=== PATIENT | female | born 1970 | race Caucasian/White ===

== ENCOUNTER 2023-06-28 15:15 | Emergency (ER) | payer BC, SELFPAY ==
[2023-06-28 15:23] VITALS: BP 167/99; PULSE 75; RESP 16; TEMP 36.1; O2SAT 97; BMI 28.0
--- NOTE | 2023-06-28 15:45 | ED.GENADULT ---
HPI - General Adult General Time Seen by Provider: 15:45 Date Seen: 06/28/23 Chief complaint: Hypertension Stated complaint: High blood pressure Time Seen by Provider: 06/28/23 15:38 Source: patient, RN notes reviewed and old records reviewed Mode of arrival: ambulatory Limitations: no limitations History of Present Illness HPI narrative: This 53-year-old female is ambulatory into the ED with concern of hypertension and headache. She has history of significant hypertension period was in [facility] for 3 years prior[place] She has had a severe headache all day, is feeling it more in the left side of the head behind the eye. She has no visual changes. She has noted no neurologic changes. She was in clinic today for what sounds to be weight loss. She had a white blood count that was normal at 6700, normal hemoglobin at 12.8, normal platelet count of 234,000. She had a chest abdomen pelvis done, showed no significant acute findings. There was a trace pericardial effusion, she had a stable adrenal lesion. She was aware of the adrenal lesion and if that was reported to be stable from prior comparisons. She has cilnidipine 10mg from [facility], did take this earlier. She also is on losartan, was on Cardizem as well. She is being switched to amlodipine and losartan was renewed, will be picking those up tomorrow. 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 No chest or respiratory symptoms at this time. She states she has a sister who has had an aneurysm, cerebral, her mom also had cerebral aneurysm. Patient herself has had an MRI and has not been found to have a cerebral vascular abnormality per her report. She states she has a brother who was hospitalize in a coma with hypertension. She notes that her right ear has been hurting, the provider she saw today stated there may have been a recent infection but nothing to treat now. She has had a history of migraine headaches before. She does have some photophobia with her current headache. She is concerned that her headache is caused by her blood pressure. On arrival her blood pressure is 167/99, she feels that this is erroneously. This was on a automatic cough. I did recheck when I was in the room with her and it was 181/100. Related Data Home Medications Medication Instructions Recorded Confirmed amlodipine 10 mg tablet PO 06/28/23 losartan 100 mg tablet 100 mg PO DAILY 06/28/23 06/28/23 Review of Systems Status of ROS: Reports: 6 or more systems reviewed and unremarkable except as noted in History and below [facility] Social History Smoking Status: Smoker, status unknown Do you use any of these nicotine containing products: Vaping Products How often do you have a drink containing alcohol: monthly or less How often do you have six or more drinks on one occasion: Never AUDIT-C Alcohol total score: 1 Non-prescribed substance use: denies use Exam Const: Vital Signs, click to edit/add: Vital Signs - 24 hr 06/28/23 15:23 06/28/23 17:21 Temperature 97.0 F L Pulse Rate [Pulse Oximeter] 75 Respiratory Rate 16 18 Blood Pressure [Ri ght Upper Arm] 167/99 H 141/82 H Pulse Oximetry 97 Oxygen Delivery Me thod Room Air This 53-year-old female is ambulatory into the ED of her own accord. She is alert, interactive, looks like she is uncomfortable but no apparent distress. Pupils are equal round reactive, extraocular muscles intact sclera clear, conjugate gaze. TMs canals are normal, no evidence of any changes or infection. She has symmetrical facial function, speaking in complete sentences. Neck is supple, no cervical adenopathy, no thyromegaly masses or nodules come no jugular venous distension. Lungs are clear, good air entry, no wheezing or crackles. CV regular rate and rhythm, no murmur, normal S1-S2, no S3-S4. Her neurologic exam is nonfocal. Course Course ED Course: I have reviewed with patient that we will monitor her blood pressure here. I did discuss with hair that I do suspect that her headache is possibly unrelated to her blood pressure. We can do a head CT here at this time to look for intracranial pathology. Will have an EKG done, will get a basic metabolic panel. Her CBC was done earlier. She also had a chest abdomen pelvis done in clinic as noted above. Will favor monitoring her blood pressures here for while before giving her further medicines. She has taken medicines prior to coming in, they may start taking effect and we could theoretically drop her blood pressure too low. We are considering hypertensive encephalopathy, migraine headache, other headache disorders, not likely to be a vascular event if MRI prior has shown her to not have any aneurysms. Reevaluation(s) Time of Reevaluation #1: 17:28 Reevaluation #1: Reviewed with Mana that her head CT is not showing any acute changes. We did review with hypertensive encephalopathy that it is very likely to be seen on head CT. MRI may be a better imaging modality but reviewed with her that I cannot do 1 here at this time. There is no available staff. Her blood pressure right now is 149/94. Her electrolytes are normal. I had ordered some IV Toradol and fluids for her but she would just like to try this orally. I have subsequently canceled that and will give her 10 mg oral Toradol. She is requesting to go home. Vital Signs Vital signs: Initial Vital Signs Temperature 97.0 F L 06/28/23 15:23 Temperature Source Temporal Artery Scan 06/28/23 15:23 Pulse Rate 75 06/28/23 15:23 Pulse Rhythm Regular 06/28/23 15:23 Respiratory Rate 16 06/28/23 15:23 Blood Pressure 167/99 H 06/28/23 15:23 Blood Pressure Mean 121 H 06/28/23 15:23 Blood Pressure Position Sitting 06/28/23 15:23 Pulse Oximetry 97 06/28/23 15:23 Oxygen Delivery Method Room Air 06/28/23 15:23 Vital Signs Temperature 97.0 F L 06/28/23 15:23 Pulse Rate 75 06/28/23 15:23 Respiratory Rate 16 06/28/23 15:23 Blood Pressure 167/99 H 06/28/23 15:23 Pulse Oximetry 97 06/28/23 15:23 Oxygen Delivery Method Room Air 06/28/23 15:23 Temperature 97.0 F L 06/28/23 15:23 Pulse Rate 75 06/28/23 15:23 Respiratory Rate 18 06/28/23 17:21 Blood Pressure 141/82 H 06/28/23 17:21 Pulse Oximetry 97 06/28/23 15:23 Oxygen Delivery Method Room Air 06/28/23 15:23 Medical Decision Making Lab Data Lab results reviewed: Yes I reviewed the patient's lab results Labs: Lab Results 06/28/23 Range/Units 16:25 Sodium 143 (135-149) mmol/L Potassium 3.6 (3.6-5.1) mmol/L Chloride 102 (96-114) mmol/L Carbon Dioxide 28 (20-32) mmol/L Anion Gap 13 (7-15) mEq/L BUN 13 (7-30) mg/dL Creatinine 0.6 (0.5-1.5) mg/dL Estimated Creat Clear 92.56 Estimated GFR 107 ml/min Glucose 104 (60-115) mg/dL Calcium 9.9 (8.4-10.6) mg/dL Imaging Data CT scan - head: Attestation: I have reviewed the pertinent imaging results. Radiologist's impression: Patient: MANA GRAY Facility:?[facility] Patient ID:?[id number] Site Patient ID:?[id number]. Site :?[id number] Study:?CT Head w/o Contrast-06/28/2023 4:45:42 PM Ordering Physician:?Lana Pichardo Final Report: INDICATION: Headache. TECHNIQUE: Noncontrast CT of the head with multiplanar reformat in bone and soft tissue algorithms. COMPARISON: None available. FINDINGS: No acute intracranial hemorrhage. The munoz-white matter interface is preserved. The ventricles are normal in size. The skull base and calvarium are within normal limits. Orbits are unremarkable. Paranasal sinuses and mastoid air cells are predominantly clear. IMPRESSION: No acute intracranial abnormality. Please note that all CT scans at this facility use dose modulation, iterative reconstruction, and/or weight-based dosing when appropriate to reduce radiation dose to as low as reasonably achievable. Dictated by Nando Mendoza MD @ 06/28/2023 5:12:48 PM (Electronic Signature) ECG Data Attestation: I personally reviewed and interpreted this ECG as follows: (Normal sinus rhythm, 70 beats per minute. No definitive ischemia noted. Flipped T-waves anterior precordial leads without any significant ST segment changes. QT corrected 460 milliseconds.) Prior ECG tracings: not available for review Discharge Plan Discharge Clinical Impression: Headache, Hypertension Patient Disposition: Home, Self-Care Condition: Stable Instructions: Hypertension (ED), General Headache (ED) Additional Instructions: Continue with your current blood pressure medicines as prescribed. Do recommend resting, can take Tylenol and ibuprofen per bottle directions for ongoing headache symptoms. Recommend plenty of fluids. If your headache is not responding to this management and is continuing to be severe, if you feel your worsening or have other concerns, do recommend re-evaluation. We do not have the capacity to do MRI overnight here but are certainly happy to re-evaluate you at any point if you have further concerns. Activity Level: Activity as Tolerated Discharge Diet: Heart Healthy (2 gm sodium, low fat) Prescriptions: No Action amlodipine 10 mg tablet PO losartan 100 mg tablet 100 mg PO DAILY Follow Up/Referrals: Yolis Moyer MD [Primary Care Provider] - Stand Alone Forms: [email or web address] Info Instructions
--- NOTE | 2023-06-28 16:07 | CRLHL7_ITS ---
For Patients: As a result of the Century Cures Act, medical imaging exams and procedure reports are released immediately into your electronic medical record. You may view this report before your referring provider. If you have questions, please contact your health care provider. INDICATION: Headache. TECHNIQUE: Noncontrast CT of the head with multiplanar reformat in bone and soft tissue algorithms. COMPARISON: None available. FINDINGS: No acute intracranial hemorrhage. The munoz-white matter interface is preserved. The ventricles are normal in size. The skull base and calvarium are within normal limits. Orbits are unremarkable. Paranasal sinuses and mastoid air cells are predominantly clear. IMPRESSION: No acute intracranial abnormality. Please note that all CT scans at this facility use dose modulation, iterative reconstruction, and/or weight-based dosing when appropriate to reduce radiation dose to as low as reasonably achievable. Dictated by Nando Mendoza MD @ 06/28/2023 5:12:48 PM (Electronically Signed)
[2023-06-28 16:57] LABS: Chloride* 102 mmol/L (96-114)
[2023-06-28 16:58] LABS: Potassium* 3.6 mmol/L (3.6-5.1); Sodium* 143 mmol/L (135-149)
[2023-06-28 17:00] LABS: Anion Gap 13 mEq/L (7-15); Carbon Dioxide* 28 mmol/L (20-32); Creatinine* 0.6 mg/dL (0.5-1.5); Est. Creatinine Clearance* 92.56; Estimated Glomerular Filt Rate 107 ml/min
[2023-06-28 17:01] LABS: Blood Urea Nitrogen* 13 mg/dL (7-30); Calcium* 9.9 mg/dL (8.4-10.6); Glucose* 104 mg/dL (60-115)
[2023-06-28 17:21] VITALS: BP 141/82; RESP 18
[2023-06-28] MEDS: KETOROLAC 10 MG TABLET PO (17:32)
== END 2023-06-28 17:47 | disposition home or self-care (01) ==
PROVIDERS: Emergency Provider Family Medicine; PCP Student in an Organized Health Care Education/Training Program
DX: R51.9 Headache, unspecified (principal); I10 Essential (primary) hypertension
CPT/HCPCS: 36415; 70450; 80048; 93005; 96374; 99284; 99285; A9270